=== PATIENT | male | born 1980 | race Caucasian/White ===

== ENCOUNTER 2021-07-24 10:00 | Outpatient (RCR) | payer OTHER, SELFPAY ==
--- NOTE | 2021-07-01 12:46 | MHC.PT.EP ---
[facility] [place] Office [place] Office [place] Office [address] Hemant Hamm [address] [phone] F: [phone] F: [phone] F: [phone] F: [phone] Physical Therapy Plan of Care Date of Evaluation: Date of Surgery: NA Diagnosis: R SHOULDER PAIN Assessment: Pt IS 40 YO RHD Pt REFERRED TO PT FROM DR CIFUENTES WITH R SHLDER PAIN (ALSO L SHLDER PAIN). REPORTS PAIN FOR ABOUT 1 YEAR SINCE WORKING OUT WHILE DEPLOYED. HAD BEEN DIAGNOSED WITH SHLER ISSUES IN PAST (?SMALL TEARS/VS IMPINGEMENT) WITHOUT PT INTERVENTION. PRESENTS WITH POOR POSTURE (FWD HEAD, ROUND SHLDERS, ANT HUMERUS (COLT ON R). SOME DECREASED END RANGE OF MOTION IN SHLDERS B WITH SLIGHT DECREASE IN RC STRENGTH PER MMT Frequency and Duration: The patient will be seen 2X/WK X 6 WKS Short Term Goals: 1. INCREASED POSTURE AWARENESS AND AWARENESS SHLDER CARE 2. IMPROVED SLEEP [facility] Goals: 1. I HEP WITH DC EX PLAN 2. DECREASED SHLDER PAIN AT LEAST 50% WITH ADLS 3. IMPROVED SPADI (79/130 AT SOC) Treatment Plan: Modalities to reduce pain, spasms and effusion. Manual therapy to restore motion and function. Therapeutic exercise to improve strength and flexibility. Neuromuscular re-education for posture and balance. Therapeutic activities to return to functional activities of daily living. Electronically signed by: RAOUL THOMSON PT Please sign and return to therapist. Thank you for your referral.
--- NOTE | 2021-09-11 13:35 | MHC.PT.DC ---
[facility] [place] Office [place] Office [place] Office [address] Hemant Hamm [address] [phone] F: [phone] F: [phone] F: [phone] F: [phone] Physical Therapy Discharge Report Diagnosis: R SHOULDER PAIN Date of Surgery: NA Date of Evaluation: 07/01/21 Date of Discharge: 09/11/21 Treatments to Date: 7 Cancellations to Date: No Shows to Date: Discharge Status: Improved Function Independent with HEP Patient Elected to Stop Discharge Summary: Pt LAST SEEN ON 07/24/21 PER ASSESSMENT THAT DAY BY AYLIN OLSEN PT, DPT Pt expressing still not able to complete floor pushups, very challenged with trial of quadriped position VC's to reduce elbow extension compensation. Pt shown how to progress from wall push-ups progressing to modified plinth (completed x 10R in the office) discussed how to build to floor over time.'. PLAN WAS TO HAVE 1 MORE SESSION THEN DC TO HOME PROGRAM. Pt CALLED TO CANCEL THAT APPT BECAUSE FEELING BETTER Electronically signed by: RAOUL THOMSON PT Please sign and return to therapist. Thank you for your referral.
== END 2021-09-11 13:36 | disposition home or self-care (01) ==
LOC: HO.PTWFD 10:00
PROVIDERS: Visit Provider Family Medicine
DX: M25.511 Pain in right shoulder (principal)
CPT/HCPCS: 97110; 97140; 97161; 97535

== ENCOUNTER 2021-09-03 10:05 | Outpatient (REF) | payer OTHER, SELFPAY ==
[2021-09-03 11:50] LABS: Alanine Aminotransferase 42 U/L (0-40); Albumin Level 4.7 g/dL (3.5-5.0); Alkaline Phosphatase 40 U/L (39-117); Anion Gap 11 (12-20); Aspartate Amino Transferase 35 U/L (5-37); Bilirubin Total 1.4 mg/dL (0.0-1.0); Blood Urea Nitrogen 15 mg/dL (9-16); Calcium 9.2 mg/dL (8.4-10.2); Carbon Dioxide 27 mmol/L (22-29); Chloride 105 mmol/L (96-108); Cholesterol 145 mg/dL; Estimated Glomerular Filt Rate > 60; Glucose Fasting 89 mg/dL (60-99); HDL Cholesterol 31 mg/dL; LDL Cholesterol Calculated 85 mg/dl; Sodium 139 mmol/L (135-145); Total Protein 7.3 g/dL (6.5-8.0); Triglycerides 145 mg/dL
[2021-09-03 12:13] LABS: Prostate Specific Antigen Scr 0.22 ng/mL (<0.05-4.0); TSH reflex Free T4 0.75 uIU/mL (0.32-4.0)
== END 2021-09-03 10:06 | disposition home or self-care (01) ==
LOC: HO.WFDLDS 10:05
PROVIDERS: Visit Provider Family Medicine
DX: Z00.00 Encounter for general adult medical examination without abnormal findings (principal); Z12.5 Encounter for screening for malignant neoplasm of prostate
CPT/HCPCS: 36415; 80053; 80061; 84153; 84443